=== PATIENT | male | born 1955 | race Caucasian/White ===

== ENCOUNTER 2017-09-09 18:02 | Emergency (ER) | payer MEDICARE, MEDICAID ==
[2017-09-09] MEDS ORDERED: Sodium Chloride 0.9% 1,000 ML IV ONE (18:12)
--- NOTE | 2017-09-09 18:38 | EDM.PDOC ---
ED HPI GENERAL MEDICAL PROBLEM - General Stated Complaint: SEIZURE Time Seen by Provider: 09/09/17 18:02 Source of Information: Reports: Patient, Family, RN History Limitations: Reports: Altered Mental Status - History of Present Illness INITIAL COMMENTS - FREE TEXT/NARRATIVE: 62 y.o. male with mental retardation, was seen initial at the clinic and sent to the ed for a possible Sz. Pt was staring a a wall for a few sec. No tonic clonic movements. As the pt arrived her in the ed, was not postictal. He did had a nl gate and was cooperative, denied any pain or discomfort. Pt was a poor historian and the caregiver present, arreola not know the HPI of this patient. No N/V/D or any other acute medical issue.Pt has a facial rash and a running nose. Tem 99.2 BP 114/63 pulse 83 Onset: Today Onset Date: 09/09/17 Onset Time: 12:00 Duration: Hour(s):, Intermittent Location: Reports: Generalized Quality: Reports: Same as Previous Episode Severity: Mild Improves with: Reports: None Worsens with: Reports: None Context: Reports: Other (un known) abdomen Pain Score (Numeric/FACES): 7 - Related Data Allergies Allergy/AdvReac Type Severity Reaction Status Date / Time No Known Allergies Allergy Verified 09/09/17 18:39 Home Meds: Home Meds Calcium Carb/Vitamin D3/Vit K1 [Viactiv Soft Chew] 1 tab PO BEDTIME 12/29/14 [ History] Calcium Carbonate [Tums] 1 tab PO Q4HR PRN 12/29/14 [History] Lactobacillus Combination No.4 [Probiotic] 1 tab PO DAILY 12/29/14 [History] Vit C/Arpan Ac/Lut/Copper/ZnOx [Preservision Lutein Softgel] 1 tab PO BID [History] Acetaminophen [Tylenol Arthritis Pain] 650 mg PO DAILY PRN 09/09/17 [History] Amoxicillin/Potassium Clav [Augmentin 875-125 Tablet] 1 each PO BID #20 tablet 09/09/17 [Rx] Cholestyramine/Sucrose [Cholestyramine Packet] 4 gm PO BEDTIME 09/09/17 [History ] Ibuprofen 600 mg PO DAILY PRN 09/09/17 [History] Potassium Bicarb/Potassium Chl [Potassium Chloride, Effervescent] 40 meq PO ONETIME #1 tab.eff 09/09/17 [Rx] Social & Family History - Tobacco Use Smoking Status *Q: Former Smoker Used Tobacco, but Quit: Yes Month Tobacco Last Used: 1999 Second Hand Smoke Exposure: No - Alcohol Use Days Per Week of Alcohol Use: 0 - Recreational Drug Use Recreational Drug Use: No ED ROS GENERAL - Review of Systems Review Of Systems: Unable To Obtain (mental retardation) - Physical Exam Exam: See Below Exam Limited By: Altered Mental Status (retardation, mental) General Appearance: Alert, WD/WN, No Apparent Distress Eye Exam: Bilateral Eye: Normal Inspection Ears: Normal External Exam Nose: Normal Inspection Throat/Mouth: Other (dry mucosal membrane) Head Exam: Atraumatic, Normocephalic Neck: Normal Inspection, Supple, Non-Tender, Full Range of Motion Respiratory/Chest: No Respiratory Distress, Lungs Clear, Normal Breath Sounds ( poor insp effort) Cardiovascular: Normal Peripheral Pulses, Regular Rate, Rhythm, No Edema GI/Abdominal: Normal Bowel Sounds, Soft, Non-Tender, No Organomegaly (Male) Exam: No Hernia Rectal (Males) Exam: Deferred Neuro Exam (Abbreviated): Alert, CN II-XII Intact, Other (h/o mental retardation ) Back Exam: Normal Inspection, Full Range of Motion Extremities: Normal Inspection, Normal Range of Motion, Non-Tender, No Pedal Edema Psychiatric: Normal Affect Skin Exam: Warm, Dry, Normal Color, Rash (facial cellulitis) Course - Vital Signs Text/Narrative:: 62 y.o. male with mental retardation, was seen initial at the clinic and sent to the ed for a possible Sz. Pt was staring a a wall for a few sec. No tonic clonic movements. As the pt arrived her in the ed, was not postictal. He did had a nl gate and was cooperative, denied any pain or discomfort. Pt was a poor historian and the caregiver present, arreola not know the HPI of this patient. No N/V/D or any other acute medical issue. Pt has a facial rash and a running nose. Tem 99.2 BP 114/63 pulse 83 PE: Facial cellulitis, gen weakness, no tongue bite, dry underwear, not post ictal No focal weakness Labs: WBC 17K Lactic acid 1.0 K 3.1 Na 138 Influenz test was neg Impression: Dehydration, Hypokalemia, facial cellulitis H/O mental retardation Tx: NS through port, potassium 40 meq po, Rocephin 1 gm im Reexam: improved Plan: D/c with instructions Last Recorded V/S: Last Vital Signs Temp 37.3 C 09/09/17 18:02 Pulse 87 09/09/17 18:02 Resp 17 09/09/17 18:02 BP 114/63 09/09/17 18:02 Pulse Ox 93 L 09/09/17 18:02 - Orders/Labs/Meds Orders: Active Orders 24 hr Category Date Time Status CULTURE BLOOD [BC] Urgent Lab 09/09/17 18:25 Received CULTURE BLOOD [BC] Urgent Lab 09/09/17 18:45 Received DRUG SCREEN, URINE ALERE [URCHEM] Stat Lab 09/09/17 18:12 Uncollected INFLUENZA A+B AG SCREEN [RM] Stat Lab 09/09/17 19:29 Uncollected UA W/MICROSCOPIC [URIN] Stat Lab 09/09/17 18:12 Uncollected Blood Culture x2 Reflex Set [OM.PC] Urgent Oth 09/09/17 18:26 Ordered Seizure Precautions [OM.PC] Routine Oth 09/09/17 18:12 Ordered Labs: Laboratory Tests 09/09/17 09/09/17 09/09/17 Range/Units 18:25 18:25 18:25 WBC 17.3 H (4.5-12.0) X10-3/uL RBC 4.54 (4.30-5.75) x10(6)uL Hgb 14.2 (11.5-15.5) g/dL Hct 42.5 (30.0-51.3) % MCV 93.5 (80-96) fL MCH 31.3 (27.7-33.6) pg MCHC 33.5 (32.2-35.4) g/dL RDW 14.6 (11.5-15.5) % Plt Count 209 (125-369) X10(3)uL MPV 8.7 (7.4-10.4) fL Add Manual Diff Yes Neutrophils % (Manual) 89 H (46-82) % Band Neutrophils % 3 (0-6) % Lymphocytes % (Manual) 4 L (13-37) % Monocytes % (Manual) 4 (4-12) % Sodium 138 (135-145) mmol/L Potassium 3.1 L (3.5-5.3) mmol/L Chloride 104 D (100-110) mmol/L Carbon Dioxide 24 (23-29) mmol/L BUN 16 (8-23) mg/dL Creatinine 1.0 (0.6-1.3) mg/dL Est Cr Clr Drug Dosing 55.56 mL/min Estimated GFR (MDRD) > 60 (>60) BUN/Creatinine Ratio 16.0 (9-20) Glucose 129 H (80-116) mg/dL Lactic Acid 1.0 (0.5-2.2) mmol/L Calcium 8.8 (8.6-10.2) mg/dL Meds: Medications Discontinued Medications Generic Name Dose Route Start Last Admin Trade Name Freq PRN Reason Stop Dose Admin Ceftriaxone Sodium 1,000 mg 09/09/17 19:33 09/09/17 19:53 Rocephin IM 09/09/17 19:34 1,000 mg ONETIME ONE Administration Heparin Sodium (Porcine) 500 units 09/09/17 20:05 Heparin Lock Flush 100 Units/Ml FLUSH 09/09/17 20:06 ONETIME ONE Sodium Chloride 1,000 mls @ 999 mls/hr 09/09/17 18:12 09/09/17 18:57 Normal Saline IV 09/09/17 19:12 999 mls/hr .BOLUS ONE Administration Potassium Chloride 40 meq 09/09/17 19:31 09/09/17 19:51 Klor-Con M20 PO 09/09/17 19:32 40 meq ONETIME ONE Administration Departure - Departure Time of Disposition: 19:56 Disposition: Home, Self-Care 01 Condition: Good Clinical Impression: Facial cellulitis, Hypokalemia, General weakness - Discharge Information Prescriptions: Amoxicillin/Potassium Clav [Augmentin 875-125 Tablet] 1 each PO BID #20 tablet Potassium Bicarb/Potassium Chl [Potassium Chloride, Effervescent] 40 meq PO ONETIME #1 tab.eff Referrals: Tanisha Morgan, [employer] [Primary Care Provider] - Additional Instructions: Please increase water intake, take potassium and augmentin as recommended, please check the potassium level this thursday or thursday. Please come back if your symptoms get worse acutely - My Orders Last 24 Hours: My Active Orders 09/09/17 18:12 DRUG SCREEN, URINE ALERE [URCHEM] Stat UA W/MICROSCOPIC [URIN] Stat Seizure Precautions [OM.PC] Routine 09/09/17 18:25 CULTURE BLOOD [BC] Urgent 09/09/17 18:26 Blood Culture x2 Reflex Set [OM.PC] Urgent 09/09/17 18:45 CULTURE BLOOD [BC] Urgent 09/09/17 19:29 INFLUENZA A+B AG SCREEN [RM] Stat - Assessment/Plan Last 24 Hours: My Active Orders 09/09/17 18:12 DRUG SCREEN, URINE ALERE [URCHEM] Stat UA W/MICROSCOPIC [URIN] Stat Seizure Precautions [OM.PC] Routine 09/09/17 18:25 CULTURE BLOOD [BC] Urgent 09/09/17 18:26 Blood Culture x2 Reflex Set [OM.PC] Urgent 09/09/17 18:45 CULTURE BLOOD [BC] Urgent 09/09/17 19:29 INFLUENZA A+B AG SCREEN [RM] Stat
[2017-09-09] MEDS ORDERED: Potassium Chloride 20 MEQ Tab.ER PO ONE (19:31)
[2017-09-09] MEDS ORDERED: cefTRIAXone 1,000 MG VIAL IM ONE (19:33)
[2017-09-09 22:16] VITALS: BP 103/65
== END 2017-09-09 20:23 | disposition home or self-care (01) ==
LOC: FB.ED 18:02
DX: L03.211 Cellulitis of face (principal); E87.6 Hypokalemia; Z87.891 Personal history of nicotine dependence; Z79.1 Long term (current) use of non-steroidal anti-inflammatories (NSAID)
CPT/HCPCS: 36415; 80048; 83605; 85025; 87040; 87804; 96360; 96372; 99283; A9270; J0696; J1642; J7040; 87077; 87186

== ENCOUNTER 2017-09-10 14:11 | Emergency (ER) | payer MEDICARE, MEDICAID ==
[2017-09-10] MEDS ORDERED: predniSONE 20 MG Tab PO ONE (15:25)
--- NOTE | 2017-09-10 15:32 | EDM.PDOC ---
ED HPI GENERAL MEDICAL PROBLEM - General Chief Complaint: Skin Complaint Stated Complaint: FACIAL SWELLING REACTION Time Seen by Provider: 09/10/17 14:11 Source of Information: Reports: Patient, Family History Limitations: Reports: Altered Mental Status - History of Present Illness INITIAL COMMENTS - FREE TEXT/NARRATIVE: 62 y.o.w.m. with mental retardation, was here yesterday for facial celluilis. Pt was riven Rocephin and augmentin. Pt came back today because his symptoms got worse. Onset: Gradual Onset Date: 09/07/17 Duration: Day(s): Location: Reports: Face Quality: Reports: Burning Severity: Moderate Improves with: Reports: Cold Therapy Worsens with: Reports: None - Related Data Allergies Allergy/AdvReac Type Severity Reaction Status Date / Time No Known Allergies Allergy Verified 09/10/17 14:53 Home Meds: Home Meds Calcium Carb/Vitamin D3/Vit K1 [Viactiv Soft Chew] 1 tab PO BEDTIME 12/29/14 [ History] Calcium Carbonate [Tums] 1 tab PO Q4HR PRN 12/29/14 [History] Vit C/Arpan Ac/Lut/Copper/ZnOx [Preservision Lutein Softgel] 1 tab PO BID [History] Amoxicillin/Potassium Clav [Augmentin 875-125 Tablet] 1 each PO BID #20 tablet 09/09/17 [Rx] Ibuprofen 600 mg PO DAILY PRN 09/09/17 [History] Acetaminophen 650 mg PO Q4H PRN 09/10/17 [History] Cholestyramine/Sucrose [Cholestyramine] 4 gm PO DAILY 09/10/17 [History] Eucalyptus Oil/Menthol/Camphor [Vicks Vaporub Ointment] 1 applic .ROUTE DAILY [History] predniSONE 20 mg PO WITHBREAKFAST #4 tablet 09/10/17 [Rx] Past Medical History HEENT History: Reports: Cataract, Impaired Vision, Macular Degeneration Cardiovascular History: Reports: Hypertension Hematologic History: Reports: Hemochromatosis Social & Family History - Family History Family Medical History: Unobtainable - Tobacco Use Smoking Status *Q: Never Smoker Used Tobacco, but Quit: Yes Month Tobacco Last Used: 1999 Second Hand Smoke Exposure: No - Caffeine Use Caffeine Use: Reports: None - Alcohol Use Days Per Week of Alcohol Use: 0 - Recreational Drug Use Recreational Drug Use: No ED ROS GENERAL - Review of Systems Review Of Systems: Unable To Obtain ED EXAM, SKIN/RASH Exam: See Below Exam Limited By: Altered Mental Status General Appearance: Alert, WD/WN, Mild Distress Eye Exam: Bilateral Eye: Normal Inspection Ears: Normal External Exam Nose: Normal Inspection Throat/Mouth: Normal Inspection Head: Atraumatic Neck: Normal Inspection Respiratory/Chest: No Respiratory Distress Cardiovascular: Normal Peripheral Pulses GI/Abdominal: Normal Bowel Sounds (Male) Exam: Deferred Rectal (Males) Exam: Deferred Back Exam: Normal Inspection, Full Range of Motion Extremities: Normal Inspection, Normal Range of Motion Neurological: Alert, CN II-XII Intact, Normal Cognition, Normal Gait, Other Psychiatric: Normal Affect, Normal Mood Skin: Warm, Rash (facial) Location, Skin: Face Characteristics: Confluent, Patchy Lymphatic: No Adenopathy Course - Vital Signs Text/Narrative:: 62 y.o.w.m. with mental retardation, was here yesterday for facial celluilis. Pt was riven Rocephin and augmentin. Pt came back today because his symptoms got worse. PE: Pacial Rash Imaging: CT head: possible allergic cellulitis as per RAD Labs: WBC 26 K ( increase from 17K yesterday) Impression; Allergic vs bacterial facial cellulitis Tx: prednison Reexam: improved Plan: D/C with instruction. Last Recorded V/S: Last Vital Signs Temp 36.6 C 09/10/17 15:39 Pulse 84 09/10/17 15:39 Resp 14 09/10/17 15:39 BP 102/78 09/10/17 15:39 Pulse Ox 90 L 09/10/17 15:39 - Orders/Labs/Meds Orders: Active Orders 24 hr Category Date Time Status Max Facial Sinus wo Cont [CT] Stat Exams 09/10/17 14:48 Taken Labs: Laboratory Tests 09/10/17 09/10/17 Range/Units 15:00 15:00 WBC 26.9 H (4.5-12.0) X10-3/uL RBC 4.53 (4.30-5.75) x10(6)uL Hgb 14.4 (11.5-15.5) g/dL Hct 42.8 (30.0-51.3) % MCV 94.6 (80-96) fL MCH 31.9 (27.7-33.6) pg MCHC 33.7 (32.2-35.4) g/dL RDW 14.5 (11.5-15.5) % Plt Count 172 (125-369) X10(3)uL MPV 8.4 (7.4-10.4) fL Neut % (Auto) Hand Thermal Cutter Lymph % (Auto) Hand Thermal Cutter Carver % (Auto) Hand Thermal Cutter Eos % (Auto) Hand Thermal Cutter Baso % (Auto) Hand Thermal Cutter Neut # (Auto) Hand Thermal Cutter Lymph # (Auto) Hand Thermal Cutter Carver # (Auto) Hand Thermal Cutter Eos # (Auto) Hand Thermal Cutter Baso # (Auto) Hand Thermal Cutter Add Manual Diff Yes Neutrophils % (Manual) 92 H (46-82) % Band Neutrophils % 3 (0-6) % Lymphocytes % (Manual) 3 L (13-37) % Monocytes % (Manual) 2 L (4-12) % Sodium 136 (135-145) mmol/L Potassium 3.8 (3.5-5.3) mmol/L Chloride 103 (100-110) mmol/L Carbon Dioxide 23 (23-29) mmol/L BUN 15 (8-23) mg/dL Creatinine 1.1 (0.6-1.3) mg/dL Est Cr Clr Drug Dosing 50.51 mL/min Estimated GFR (MDRD) > 60 (>60) BUN/Creatinine Ratio 13.6 (9-20) Glucose 117 H (80-116) mg/dL Calcium 8.6 (8.6-10.2) mg/dL Meds: Medications Discontinued Medications Generic Name Dose Route Start Last Admin Trade Name Freq PRN Reason Stop Dose Admin Prednisone 60 mg 09/10/17 15:25 09/10/17 15:30 Prednisone PO 09/10/17 15:26 60 mg ONETIME ONE Administration Departure - Departure Time of Disposition: 15:32 Disposition: Home, Self-Care 01 Condition: Good Clinical Impression: Facial cellulitis - Discharge Information Prescriptions: predniSONE 20 mg PO WITHBREAKFAST #4 tablet Instructions: Cellulitis, Adult, [id number] Referrals: Fly Jacobson MD [Primary Care Provider] - Forms: ED Department Discharge Additional Instructions: Please take the ABx and prednison as recommended, please f/u in am with your PMD , please come back to the ed if your symptoms get worse acutely - My Orders Last 24 Hours: My Active Orders 09/10/17 14:48 Max Facial Sinus wo Cont [CT] Stat - Assessment/Plan Last 24 Hours: My Active Orders 09/10/17 14:48 Max Facial Sinus wo Cont [CT] Stat
[2017-09-10 15:40] VITALS: BP 102/78
--- NOTE | 2017-09-11 10:25 | CT ---
INDICATION: Facial swelling, started on the right side, now most of the face is red and swollen, question medication reaction. CT PARANASAL SINUSES: Spiral axial images of the paranasal sinuses 0.63 mm were obtained 09/10/2017 with coronal reconstructions. No comparison studies were available, except for CT of the head from 02/07/2015. Total exam DLP = 506.68 mGy-cm. There is a mild degree of thickening of the linings of the maxillary antra at their bases, right greater than left, with some minimal thickening at the bases of the frontal air cells also noted. However, no air fluid levels, complete opacifications, or bony erosions were identified to strongly suggest acute sinusitis. IMPRESSION: Findings are compatible with minimal allergic sinusitis or other minimal abnormality of the paranasal sinuses. No gross acute abnormalities were seen. Report was called to Dr. Umanzor immediately after the examination was completed on 09/10/2017. REMA
== END 2017-09-10 15:43 | disposition home or self-care (01) ==
LOC: FB.ED 14:11
DX: L03.211 Cellulitis of face (principal); I10 Essential (primary) hypertension; Z79.899 Other long term (current) drug therapy
CPT/HCPCS: 36415; 70486; 80048; 85025; 99283; A9270

== ENCOUNTER 2025-08-27 10:44 | Emergency (ER) | payer MEDICARE, MEDICAID ==
[2025-08-27] MEDS ORDERED: Sodium Chloride 0.9% 10 ML Syringe FLUSH PRN (10:55)
[2025-08-27 11:05] LABS: BASOPHILS ABSOLUTE AUTO 0.0 x10-3/uL (0.0-0.3); BASOPHILS PERCENT AUTO 0.3 % (0.3-3.8); EOSINOPHILS ABSOLUTE AUTO 0.0 x10-3/uL (0.0-0.6); EOSINOPHILS PERCENT AUTO 0.8 % (0.1-6.8); LYMPHOCYTES ABSOLUTE AUTO 0.7 x10-3/uL (0.5-4.5); LYMPHOCYTES PERCENT AUTO 18.7 % (15.8-45.3); MEAN PLATELET VOLUME 8.4 fL (6.7-11.0); MONOCYTES ABSOLUTE AUTO 0.6 x10-3/uL (0.0-1.2); MONOCYTES PERCENT AUTO 15.3 % (5.5-15.2); NEUTROPHILS ABSOLUTE AUTO 2.4 x10-3/uL (1.7-6.9); NEUTROPHILS PERCENT AUTO 64.9 % (40.3-71.8); PLATELET COUNT,PLT 141 x10(3)uL (117-477); RED BLOOD CELL COUNT 4.37 x10(6)uL (3.90-5.90); RED CELL DISTRIBUTION WIDTH 14.6 % (12.4-15.0); WHITE BLOOD CELL COUNT,WBC 3.7 x10-3/uL (3.2-10.1)
[2025-08-27 11:09] LABS: BLOOD UREA NITROGEN,BUN 19 mg/dL (7-18); CARBON DIOXIDE,CO2 27 mmol/L (21-32); CHLORIDE,CL 106 mmol/L (100-110); CREATININE 1.2 mg/dL (0.70-1.30); ESTIMATED GFR 66 mL/min (>60); GLUCOSE RANDOM 96 mg/dL (80-116); POTASSIUM,K 3.6 mmol/L (3.5-5.3); SODIUM,NA 141 mmol/L (135-145)
[2025-08-27 11:15] LABS: A/G RATIO 0.8; ALANINE AMINOTRANSFERASE,ALT 28 U/L (12-36); ASPARTATE AMNIOTRANSFERASE,AST 32 IU/L (5-25); BILIRUBIN TOTAL 0.5 mg/dL (0.1-1.3); PROTEIN TOTAL,TP 7.0 g/dL (6.0-8.0)
[2025-08-27 11:16] VITALS: BP 123/65; PULSE 55
[2025-08-27 11:18] LABS: LACTIC ACID 1.3 mmol/L (0.4-2.0)
== END 2025-08-27 13:30 ==
LOC: FB.ED 10:44
DX: R55 Syncope and collapse (principal); B34.9 Viral infection, unspecified; I10 Essential (primary) hypertension; Z79.899 Other long term (current) drug therapy
CPT/HCPCS: 36415; 80053; 83605; 83735; 84484; 85025; 86140; 93005; 93010; 96360; 99283; 99284-25; J7030

== ENCOUNTER 2025-09-28 16:02 | Emergency (ER) | payer MEDICARE, MEDICAID ==
[2025-09-28] MEDS ORDERED: Sodium Chloride 0.9% 10 ML Syringe FLUSH PRN (16:10)
[2025-09-28 16:33] LABS: BLOOD UREA NITROGEN,BUN 22 mg/dL (7-18); ESTIMATED GFR 73 mL/min (>60)
[2025-09-28 16:48] LABS: MEAN PLATELET VOLUME 8.6 fL (6.7-11.0); PLATELET COUNT,PLT 143 x10(3)uL (117-477); RED BLOOD CELL COUNT 4.43 x10(6)uL (3.90-5.90); RED CELL DISTRIBUTION WIDTH 14.7 % (12.4-15.0); WHITE BLOOD CELL COUNT,WBC 18.8 x10-3/uL (3.2-10.1)
[2025-09-28 16:53] LABS: CARBON DIOXIDE,CO2 28 mmol/L (21-32); CHLORIDE,CL 106 mmol/L (100-110); CREATININE 1.1 mg/dL (0.70-1.30); GLUCOSE RANDOM 113 mg/dL (80-116); MONOCYTES PERCENT MAN 5 % (4-12); POTASSIUM,K 4.0 mmol/L (3.5-5.3); SEG NEUTROPHILS PERCENT MAN 95 % (46-82); SODIUM,NA 144 mmol/L (135-145)
[2025-09-28 16:59] LABS: A/G RATIO 0.9; ALANINE AMINOTRANSFERASE,ALT 33 U/L (12-36); ASPARTATE AMNIOTRANSFERASE,AST 38 IU/L (5-25); BILIRUBIN TOTAL 0.8 mg/dL (0.1-1.3); PROTEIN TOTAL,TP 6.5 g/dL (6.0-8.0)
[2025-09-28 20:04] VITALS: BP 116/53; PULSE 84
== END 2025-09-28 19:45 | disposition home or self-care (01) ==
LOC: FB.ED 16:02
DX: I95.9 Hypotension, unspecified (principal); R56.9 Unspecified convulsions; I10 Essential (primary) hypertension; Z79.899 Other long term (current) drug therapy
CPT/HCPCS: 36415; 70450; 80053; 85025; 93005; 96361; 96365; 99284; 99285-25; J1953; J7030